=== PATIENT | male | born 1995 | race African-American/Black ===

== ENCOUNTER 2016-09-29 14:47 | Emergency (ER) | payer OTHER ==
[~2016-09-29] VITALS: Ht 165.1 cm; Wt 61.3 kg
[~2016-09-29 14:47] MED LIST: BACTRIM,SEPT1 TABLET PO; CLONIDINE HCL0.1 MG PO; FLEXERIL5 MG PO; HYDROCODON-ACE1 EAC7 PO; KEFLEX500 MG PO; NAPROSYN500 MG PO; NAPROXEN500 MG PO; NOHOMEMEDS; SERTRALINE HCL50 MG PO
[2016-09-29] MEDS ORDERED: MOTRIN600 MG PO (16:02)
[2016-09-29 16:10] VITALS: BP 119/72
== END 2016-09-29 16:12 | disposition home or self-care (01) ==
LOC: EME 14:47
PROC: 0990XZZ Drainage of Right External Ear, External Approach (ICD-10-PCS; principal; 2016-09-29)
DX: H60.01 Abscess of right external ear (principal)
CPT/HCPCS: 99281; 99283

== ENCOUNTER 2016-10-12 14:40 | Emergency (ER) | payer OTHER ==
[~2016-10-12] VITALS: Ht 165.1 cm; Wt 60.7 kg
[~2016-10-12 14:40] MED LIST changes: +MOTRIN600 MG PO
[2016-10-12] MEDS ORDERED: BACTRIM,SEPT1 TABLET PO (15:19)
[2016-10-12 15:36] VITALS: BP 121/69
== END 2016-10-12 15:37 | disposition home or self-care (01) ==
LOC: EME 14:40
DX: L02.414 Cutaneous abscess of left upper limb (principal); F17.200 Nicotine dependence, unspecified, uncomplicated
CPT/HCPCS: 99281; 99282

== ENCOUNTER 2017-09-17 01:39 | Emergency (ER) | payer SELFPAY ==
[~2017-09-17] VITALS: Ht 170.2 cm; Wt 61.5 kg
[2017-09-17 02:03] LABS: HEMOGLOBIN 15.2 G/DL (12.5-16.6); MCH 28.7 PG (29.0-34.0); MCHC 34.5 G/DL (30.0-36.0); MCV 83.2 FL (86-99); PLATELET COUNT 226 K/uL (156-360); RBC DIS.WIDTH-CV 12.8 % (11.8-14.6); RBC DIS.WIDTH-SD 38.8 % (39-53); RED BLOOD COUNT 5.29 M/uL (4.00-5.50); WHITE BLOOD COUNT 16.9 K/uL (4.1-10.2)
[2017-09-17 02:12] LABS: ALBUMIN 4.9 g/dL (3.2-4.8); CHLORIDE 108 mEq/L (99-109); POTASSIUM 4.5 mEq/L (3.7-5.4); SODIUM 142 mEq/L (136-147)
[2017-09-17 02:15] LABS: GLUCOSE 115 mg/dL (70-99); TOTAL PROTEIN 8.3 g/dL (6.4-8.3)
[2017-09-17 02:17] LABS: TOTAL BILIRUBIN 0.9 mg/dL (0.0-1.0)
[2017-09-17 02:18] LABS: ALKALINE PHOSPHATASE 79 IU/L (3-129); CREATININE 1.1 mg/dL (0.6-1.3); GFR ESTIMATE (CALCULATED) > 59 mL/min/ (58.99-99999)
[2017-09-17 02:19] LABS: UREA NITROGEN (BUN) 16 mg/dL (9-23)
[2017-09-17 02:20] LABS: AST (GOT) 23 IU/L (2-34)
[2017-09-17 02:21] LABS: ALT (GPT) 27 IU/L (3-49)
[2017-09-17] MEDS ORDERED: BENTYL20 MG PO (03:30)
[2017-09-17] MEDS ORDERED: ZOFRAN ODT8 MG PO (03:30)
[2017-09-17 03:34] VITALS: BP 125/85
== END 2017-09-17 03:38 | disposition home or self-care (01) ==
LOC: EXP 01:39 → EME 01:39 → EXP 03:38
DX: A08.4 Viral intestinal infection, unspecified (principal); F17.200 Nicotine dependence, unspecified, uncomplicated
CPT/HCPCS: 74176; 80053; 81003; 85027; 99281; 99284; J0500